=== PATIENT | male | born 1975 | race Caucasian/White ===

== ENCOUNTER 2017-04-07 10:52 | Emergency (ER) | payer OTHER ==
[2017-04-07 10:58] VITALS: BP 126/87; PULSE 77; TEMP 98.4; BMI 32.3
--- NOTE | 2017-04-07 11:13 | PDOC ---
History of Present Illness <StephanieZoey - Last Filed: 04/07/17 11:54> - General History Source: Patient Exam Limitations: No Limitations - History of Present Illness Initial Comments: 04/07/17 12:01 The patient is a 41 year old male presenting with his , with a significant past medical history of HLD, who presents to the emergency department with abdominal pain for the past 3 months but has exacerbated the last 2 weeks. He reports that he developed an inguinal hernia 9 months ago and he states that this is the source of his pain. He describes the pain as moderate, without radiation. He states that his pain is exacerbated when the area is pushed and when he ambulates or carries a heavy object. He reports that his bowel movements have been regular, with the last one being at 7am. The patient denies chest pain, shortness of breath, headache and dizziness. Denies fever, chills, nausea, vomit, diarrhea and constipation. Denies dysuria, frequency, urgency and hematuria. Allergies: None Past surgical history: None reported Social history: No alcohol, tobacco or drug use reported <Alejandro Núñez - Last Filed: 04/07/17 12:02> - General Chief Complaint: Pain Stated Complaint: ABD PAIN Time Seen by Provider: 04/07/17 11:12 Past History - Past Medical History Hypercholesterolemia: Yes Other medical history: UMBLAICAL HERNIA - Psycho/Social/Smoking Cessation Hx Anxiety: No Suicidal Ideation: No Smoking Status: Yes Smoking History: Never smoked Have you smoked in the past 12 months: No Number of Cigarettes Smoked Daily: 1 Information on smoking cessation initiated: No Hx Alcohol Use: No Drug/Substance Use Hx: No Substance Use Type: None <Zoey Brown - Last Filed: 04/07/17 11:54> <Alejandro Núñez - Last Filed: 04/07/17 12:02> - Past Medical History Allergies/Adverse Reactions: Allergies Allergy/AdvReac Type Severity Reaction Status Date / Time No Known Allergies Allergy Verified 04/07/17 10:53 Home Medications: Ambulatory Orders No Home Medications 0 dose .ROUTE UTDICT 05/27/12 Review of Systems - Review of Systems Able to Perform ROS?: Yes Comments:: 04/07/17 12:01 GENERAL/CONSTITUTIONAL: No fever or chills. No weakness. HEAD, EYES, EARS, NOSE AND THROAT: No change in vision. No ear pain or discharge. No sore throat. CARDIOVASCULAR: No chest pain or shortness of breath RESPIRATORY: No cough, wheezing, or hemoptysis. GASTROINTESTINAL: (+) Abdominal pain and nausea. No vomiting, diarrhea or constipation. GENITOURINARY: No dysuria, frequency, or change in urination. MUSCULOSKELETAL: No joint or muscle swelling or pain. No neck or back pain. SKIN: No rash NEUROLOGIC: No headache, vertigo, loss of consciousness, or change in strength/ sensation. ENDOCRINE: No increased thirst. No abnormal weight change HEMATOLOGIC/LYMPHATIC: No anemia, easy bleeding, or history of blood clots. ALLERGIC/IMMUNOLOGIC: No hives or skin allergy. <Alejandro Núñez - Last Filed: 04/07/17 12:02> *Physical Exam - Vital Signs Last Vital Signs Temp Pulse Resp BP Pulse Ox 98.4 F 77 18 126/87 100 04/07/17 10:55 04/07/17 10:55 04/07/17 10:55 04/07/17 10:55 04/07/17 10:55 <Zoey Brown - Last Filed: 04/07/17 11:54> - Vital Signs Last Vital Signs Temp Pulse Resp BP Pulse Ox 98.4 F 77 18 126/87 100 04/07/17 10:55 04/07/17 10:55 04/07/17 10:55 04/07/17 10:55 04/07/17 10:55 - Physical Exam Comments: 04/07/17 12:01 GENERAL: Awake, alert, and fully oriented, in no acute distress HEAD: No signs of trauma, normocephalic, atraumatic EYES: PERRLA, EOMI, sclera anicteric, conjunctiva clear ENT: Auricles normal inspection, hearing grossly normal, nares patent, oropharynx clear without exudates. Moist mucosa NECK: Normal ROM, supple, no lymphadenopathy, JVD, or masses LUNGS: No distress, speaks full sentences, clear to auscultation bilaterally HEART: Regular rate and rhythm, normal S1 and S2, no murmurs, rubs or gallops, peripheral pulses normal and equal bilaterally. ABDOMEN: (+) Soft reducible umbilical hernia, mild tenderness around the hernia itself. Soft, normoactive bowel sounds. No guarding, no rebound. No masses EXTREMITIES: Normal inspection, Normal range of motion, no edema. No clubbing or cyanosis. NEUROLOGICAL: Cranial nerves II through XII grossly intact. Normal speech, normal gait, no focal sensorimotor deficits SKIN: Warm, Dry, normal turgor, no rashes or lesions noted. <Alejandro Núñez - Last Filed: 04/07/17 12:02> Medical Decision Making - Medical Decision Making 04/07/17 11:50 Pt presents to the ED complaining of a 9 month history of soft, reducible umbilical hernia. Patient reports that he is able to eat and have bowel movements without difficulty, but that he is having pain with lifting heavy objects and walking long distances and this is interfering with his work. I was able to reduce his hernia in the Ed. Patient has seen a surgeon who recommended admission which he declined because he was unable to pay. The patient has medicaid. I have discussed with him that he must call a surgeon who accepts medicaid to make an appointment. Patient understands that he must return immediately to the ED for severe pain, severe nausea and vomiting or fever. <Zoey Brown - Last Filed: 04/07/17 11:54> *DC/Admit/Observation/Transfer - Discharge Dispostion Admit: No <Zoey Brown - Last Filed: 04/07/17 11:54> - Attestations Scribe Attestion: 04/07/17 12:02 Documentation prepared by Alejandro Núñez, acting as medical donation professional for Zoey Brown MD <Alejandro Núñez - Last Filed: 04/07/17 12:02> Diagnosis at time of Disposition: Umbilical hernia Qualifiers: Obstruction and gangrene presence: without obstruction or gangrene Qualified Code(s): K42.9 - Umbilical hernia without obstruction or gangrene - Discharge Dispostion Disposition: HOME Condition at time of disposition: Good - Patient Instructions Printed Discharge Instructions: DI for Ventral Hernia Additional Instructions: Regresar al Departamento de Urgencias por dolor abdominal little, nuseas y v mitos severos, incapaz de evacuar. Debe hacer kin dionne con un cirujano. Pudes nelda motrin o tyenol sin receta para dolor. Print Language: SINHALA
== END 2017-04-07 12:14 | disposition home or self-care (01) ==
LOC: JER 10:52
DX: K42.9 Umbilical hernia without obstruction or gangrene (principal); E78.00 Pure hypercholesterolemia, unspecified
CPT/HCPCS: 99282-25

== ENCOUNTER 2017-04-11 00:01 | Emergency (ER) | payer OTHER ==
[2017-04-11 00:16] VITALS: TEMP 98.6; BMI 37.8
--- NOTE | 2017-04-11 00:25 | PDOC ---
History of Present Illness - General History Source: Patient Exam Limitations: No Limitations - History of Present Illness Initial Comments: 04/11/17 00:33 The patient is a 41 year old male with significant past medical history of hyperlipidemia who presents to the ED for increasing pain to his umbilical hernia. Patient reports a 8 month history of umbilical hernia and developed increasing pain to the area for the past several weeks. He is able to eat and pass stool, but is difficult secondary to the pain. Patient was seen here in the ER 4 days for same complaint, where he was treated and discharge. He returns today because is pain is intolerable. Denies nausea, vomiting, or diarrhea. The patient denies fever, chills, diaphoresis, cough, SOB, chest pain, and palpitations. Allergies: NKDA Social History: No alcohol, tobacco, or drug use reported. Past Surgical History: None reported PCP: None reported <Sara Mason - Last Filed: 04/11/17 02:29> - General History Source: Patient <Alejandro Naranjo - Last Filed: 04/11/17 02:41> - General Chief Complaint: Pain Stated Complaint: STOMACH PAIN Time Seen by Provider: 04/11/17 00:21 Past History <Sara Mason - Last Filed: 04/11/17 02:29> - Past Medical History Hypercholesterolemia: Yes - Psycho/Social/Smoking Cessation Hx Anxiety: No Suicidal Ideation: No Smoking Status: Yes Smoking History: Never smoked Have you smoked in the past 12 months: No Number of Cigarettes Smoked Daily: 1 Information on smoking cessation initiated: No Hx Alcohol Use: No Drug/Substance Use Hx: No Substance Use Type: None <Alejandro Naranjo - Last Filed: 04/11/17 02:41> - Past Medical History Allergies/Adverse Reactions: Allergies Allergy/AdvReac Type Severity Reaction Status Date / Time No Known Allergies Allergy Verified 04/11/17 00:12 Home Medications: Ambulatory Orders No Home Medications 0 dose .ROUTE UTDICT 05/27/12 Ibuprofen 800 mg PO TID #30 tablet 04/11/17 Review of Systems - Review of Systems Able to Perform ROS?: Yes Comments:: 04/11/17 00:33 CONSTITUTIONAL: Absent: fever, no chills, no fatigue EYES: Absent: visual changes ENT: Absent: ear pain, no sore throat CARDIOVASCULAR: Absent: chest pain, no palpitations RESPIRATORY: Absent: cough, no SOB GI: +umbilical hernia pain Absent: no nausea, no vomiting, no constipation, no diarrhea GENITOURINARY: Absent: dysuria, no frequency, no hematuria MUSCULOSKELETAL: Absent: back pain, no arthralgia, no myalgia SKIN: Absent: rash NEURO: Absent: headache <Sara Mason - Last Filed: 04/11/17 02:29> *Physical Exam - Vital Signs Last Vital Signs Temp Pulse Resp BP Pulse Ox 98.6 F 86 19 152/107 97 04/11/17 00:13 04/11/17 00:13 04/11/17 00:04/11/17 00:04/11/17 00:13 - Physical Exam Comments: 04/11/17 00:33 GENERAL: Well-appearing, well-nourished. No apparent distress. HEENT: Normocephalic, atraumatic. PERRL, EOM intact. CARDIOVASCULAR: Normal S1, S2. Regular rate and rhythm. PULMONARY: Clear to auscultation bilaterally. ABDOMINAL: Soft. Mild diffuse tenderness. Distended. No rebound or guarding. Umbilical defect that appears to be soft. Decreased bowel sounds. EXTREMITIES: Normal ROM in all four extremities. No gross deformities. SKIN: Warm, dry. No rash NEUROLOGICAL: No focal neurological deficits. <Sara Mason - Last Filed: 04/11/17 02:29> - Vital Signs Last Vital Signs Temp Pulse Resp BP Pulse Ox 98.6 F 86 19 152/107 97 04/11/17 00:13 04/11/17 00:13 04/11/17 00:13 04/11/17 00:13 04/11/17 00:13 <Alejandro Naranjo - Last Filed: 04/11/17 02:41> ED Treatment Course - LABORATORY CBC & Chemistry Diagram: 04/11/17 00:31 04/11/17 00:31 - RADIOLOGY Radiograph Interpretation: 04/11/17 02:29 Exam: Contrast-enhanced CT abdomen and pelvis Reviewed by Imaging corrosion control specialist: Findings: The lung bases are clear. Heterogeneous fatty infiltration the liver is noted. The gallbladder spleen and pancreas all have a normal appearance. The left adrenal gland is unremarkable. A myelolipoma the right measures up to 4 cm in diameter. The kidneys have a normal appearance and enhance symmetrically. There is no evidence of urinary tract obstruction. The gastrointestinal tract does not appear obstructed. No thickened or dilated bowel is seen. The appendix has a normal appearance. There is no mesenteric infiltration or free fluid. The urinary bladder, prostate seminal vesicles are unremarkable. No abdominal or pelvic adenopathy is seen. No lytic or blastic destructive osseous lesions are seen. A small fat containing umbilical hernia is noted. Impression: Hepatic steatosis. Right adrenal myolipoma. Small fat containing umbilical hernia. <Sara Mason - Last Filed: 04/11/17 02:29> - LABORATORY CBC & Chemistry Diagram: 04/11/17 00:31 04/11/17 00:31 <Alejandro Naranjo - Last Filed: 04/11/17 02:41> Medical Decision Making - Medical Decision Making 04/11/17 02:40 Dr. Naranjo: The scribe's documentation has been prepared under my direction and personally reviewed by me in its entirery. I confirm that the note above accurately reflects all work, treatment, procedures, and medical decision making performed by me. <Alejandro Naranjo - Last Filed: 04/11/17 02:41> *DC/Admit/Observation/Transfer - Attestations Scribe Attestion: 04/11/17 00:33 Documentation prepared by Sara Mason, acting as medical anthropology director for Alejandro Naranjo MD/DO. <Sara Mason - Last Filed: 04/11/17 02:29> - Discharge Dispostion Admit: No <Alejandro Naranjo - Last Filed: 04/11/17 02:41> Diagnosis at time of Disposition: Umbilical hernia Qualifiers: Obstruction and gangrene presence: without obstruction or gangrene Qualified Code(s): K42.9 - Umbilical hernia without obstruction or gangrene - Discharge Dispostion Disposition: HOME Condition at time of disposition: Stable - Referrals Referrals: Cr Verma MD [Staff Physician] - Eduard Baltazar MD [Staff Physician] - - Patient Instructions Printed Discharge Instructions: DI Umbilical Hernia-Child Print Language: ENGLISH
[2017-04-11] MEDS ORDERED: ONDANSETRON 4 MG/2 ML VIAL IVPUSH STA (00:31)
[2017-04-11] MEDS ORDERED: morphine CARPU-JECT 2 MG/1 ML DISP.SYRIN IVPUSH ONE (00:31)
[2017-04-11] MEDS ORDERED: SODIUM CHLORIDE 1,000 ML IV STA (00:32)
[2017-04-11] MEDS ORDERED: morphine CARPU-JECT 4 MG/1 ML DISP.SYRIN ONE (00:42)
[2017-04-11] MEDS ORDERED: ONDANSETRON 4 MG/2 ML VIAL ONE (00:43)
[2017-04-11] MEDS ORDERED: morphine CARPU-JECT 2 MG/1 ML DISP.SYRIN ONE (00:43)
[2017-04-11 00:46] LABS: BASOPHIL 0.9 % (0-2.0); EOSINOPHIL 2.4 % (0-4.5); MCH 31.7 pg (25.7-33.7); MCHC 34.6 g/dl (32.0-35.9); MEAN CELL VOLUME 91.7 fl (80-96); MEAN PLT VOLUME 8.2 fl (7.5-11.1); NEUTROPHILS 49.3 % (42.8-82.8); PLATELET COUNT 221 K/MM3 (134-434); RDW 13.1 % (11.9-15.9)
[2017-04-11 01:30] LABS: ALBUMIN 3.8 g/dl (3.4-5.0); ANION GAP 9 (8-16); BILIRUBIN,TOTAL 0.3 mg/dL (0.2-1.0); CALCIUM 8.5 mg/dL (8.5-10.1); CO2 29 mmol/L (21-32); GLUCOSE,RANDOM 99 mg/dL (74-106); SGOT/AST 35 U/L (15-37); SGPT/ALT 111 U/L (12-78); TOT PROT 6.9 g/dl (6.4-8.2)
[2017-04-11 01:31] LABS: ALK PHOS 90 U/L (45-117)
[2017-04-11 02:49] VITALS: BP 138/89; PULSE 70
== END 2017-04-11 02:50 | disposition home or self-care (01) ==
LOC: JER 00:01
PROC: 3E033NZ Introduction of Analgesics, Hypnotics, Sedatives into Peripheral Vein, Percutaneous Approach (ICD-10-PCS; principal; 2017-04-11)
PROC: 3E033GC Introduction of Other Therapeutic Substance into Peripheral Vein, Percutaneous Approach (ICD-10-PCS; 2017-04-11)
DX: K42.9 Umbilical hernia without obstruction or gangrene (principal); R78.5 Finding of other psychotropic drug in blood
CPT/HCPCS: 36415; 74177-TC; 80053; 85025; 96374; 96375; 99282-25